=== PATIENT | female | born 1980 | race Caucasian/White ===

== ENCOUNTER 2018-08-14 09:11 | Outpatient (CLI) | payer OTHER, SELFPAY ==
--- NOTE | 2018-08-14 11:47 | RAD ---
KUB: DATE: 08/14/18. COMPARISON: None. HISTORY: Renal calculi. FINDINGS: There is a double-J ureteral stent on the left. There is a calcification in the left upper quadrant measuring 10-11 mm in transverse dimension suggesting a left renal stone. No calcifications are seen along the course of the left double-J ureteral stent. Three punctate calcifications are seen superi or to the 10-11 mm calcification in the left upper quadrant. Additional small renal stones cannot be excluded. There is a questionable calcification in the left upper quadrant just lateral to and superior to the L2 transverse process on the right which may represent a right renal stone measuring in the 4 mm rang e. IMPRESSION: Left double-J ureteral stent in place. A 10-11 mm stone in the left kidney suspected. A few additio nal punctate stones cannot be excluded in this region as well. Questionable right renal stone. POS: [facility]
== END 2018-08-14 09:12 | disposition home or self-care (01) ==
LOC: RAD 09:11
PROVIDERS: ATTEND Internal Medicine
DX: N20.0 Calculus of kidney (principal); Z96.0 Presence of urogenital implants
CPT/HCPCS: 74018

== ENCOUNTER 2018-12-23 13:18 | Outpatient (CLI) | payer OTHER ==
--- NOTE | 2018-12-23 15:59 | RAD ---
ABDOMEN ONE VIEW: 12/23/18 HISTORY: Renal calculi. COMPARISON: 08/14/18 FINDINGS: The previously noted left ureteral stent has been removed. There appears to be a calculus in the left kidney which is somewhat smaller and more poorly defined than when compared to the prior study. No o vert ureteral calculus. No bowel obstruction. IMPRESSION: Left lower pole renal calculus, smaller and more poorly defined than on the prior study. POS: HARISH
== END 2018-12-23 13:19 | disposition home or self-care (01) ==
LOC: BICRAD 13:18
PROVIDERS: ATTEND Urology
DX: N20.0 Calculus of kidney (principal)
CPT/HCPCS: 74018